=== PATIENT | male | born 1945 | race Caucasian/White ===

== ENCOUNTER 2017-01-03 08:03 | Day surgery (SDC) | payer MEDICARE, OTHER ==
[2016-12-27 15:44] LABS: HEMATOCRIT 40.8 % (40.0-51.0); HEMOGLOBIN 13.9 g/dL (13.6-17.8)
[2016-12-27 16:04] LABS: BUN (BLOOD UREA NITROGEN) 35 MG/DL (6-23); CALCIUM, SERUM 9.7 MG/DL (8.5-10.4); CHLORIDE, SERUM 106 MMOL/L (96-112); CO2 (CARBON DIOXIDE) 26 MMOL/L (24-34); GFR AFRICAN AMERICAN 40 ML/MIN (>=60); GFR NON AFRICAN AMERICAN 34 ML/MIN (>=60); GLUCOSE, SERUM 96 MG/DL (60-99); POTASSIUM, SERUM 4.2 MMOL/L (3.5-5.3); SODIUM, SERUM 141 MMOL/L (135-148)
[2016-12-27 16:05] LABS: CREATININE 1.93 MG/DL (0.70-1.30)
--- NOTE | ~2017-01-03 | OP ---
Record Of Operation [facility] [address] [place]. [address] NAME: VIRGINIE KAT : 47 STATUS : [facility] [place] PAT#: [id number] AGE: 71 ADM/REG DATE : 01/03/17 MR#: [id number] REPORT SERV DATE: 01/03/17 DICTATED BY: KUNAL JORDAN DATE: 01/03/17 REPORT STATUS : Draft TRANSCRIBED BY: ONELIA DATE: 01/03/17 DATE OF PROCEDURE: 01/03/2017 PREOPERATIVE DIAGNOSES: L2-3 stenosis, right L4-5 stenosis, left L5-S1 stenosis, and lumbar radiculopathy POSTOPERATIVE DIAGNOSES: L2-3 stenosis, right L4-5 stenosis, left L5-S1 stenosis, and lumbar radiculopathy. PROCEDURES: Left-sided L5-S1, right-sided L4-5, and right-sided L2-3 microdiscectomy; right- sided L2-L3 minimally invasive laminectomy; minimal access spine technology; intraoperative O-arm CT scan with computer navigation and operative microscope with decompression of the bilateral L2-L3 nerves, right L4-L5, and left L5-S1 nerve roots. ANESTHESIA: General. ESTIMATED BLOOD LOSS: 20 mL. COMPLICATIONS: None. INDICATIONS: The patient is a pleasant 71-year-old gentleman with intractable leg pain, failed multiple attempts at conservative treatment including therapy, medications, and epidural injections. After discussion of the risks and benefits, elected to proceed with surgical intervention. DESCRIPTION OF PROCEDURE: I identified the patient in the holding area. Consent was obtained. Went to the operating room. Underwent general anesthesia with endotracheal intubation. Prepped and draped in the usual sterile fashion. Operative safety pause was performed, and then we proceeded with the surgery. O-arm registration frame was placed in the iliac crest. O-arm was brought in for intraoperative CT scan. Computer registration materials were verified. Under computer guidance, a right longitudinal incision was made over the L2-5 level taken down through the fascial layer. Tube dilators were used to minimally invasively dissect down to the right L2-3 interspace. Operative microscope was brought in. A yudi was used to perform a laminotomy. Bhupinder performed a foraminotomy. Disk was incised. Free disk material was removed with the pituitary. A laminectomy was performed from the right-sided approach at the L2-L3 level decompressing bilateral sides. The tubes were then placed on the right side at the L4-5 level. Laminotomy, foraminotomy, and discectomy were repeated at that level as well as on the left-sided L5-S1 as detailed above. Irrigation was performed. Hemostasis was achieved. A layered closure was performed. Sterile dressings were applied. The patient was awoken and extubated, and taken to the recovery room in stable condition. FINDINGS: Lumbar stenosis as detailed above. Record Of Operation [address] [address] NAME: VIRGINIE KAT : 47 STATUS : [facility] [place] PAT#: [id number] AGE: 71 ADM/REG DATE : 01/03/17 MR#: [id number] REPORT SERV DATE: 01/03/17 DICTATED BY: KUNAL JORDAN DATE: 01/03/17 REPORT STATUS : Draft TRANSCRIBED BY: MODDeisy DATE: 01/03/17 SHIMA/ONELIA Kunal Jordan DO / [id number] CC: DO Marko Angel M.D.
[~2017-01-03 08:03] MED LIST: ADDER10 PO; ADDERALL XR20 MG PO; ADDERXR10 PO; ALPHA LIPOIC300 MG PO; ALPHA LIPOIC50 M1 PO; ARICEPT10 PO; ASAB PO; ASMANEX 30110 MCG IN; ASMANEX INH; AVAP150 PO; AVAPRO300 MG PO; AZO-CRANBERY450 MG PO; B COMPLETE PO; B COMPLEX; BREO ELLIPTA INH; CAL12OSR PO; CELEBREX2 PO; CO Q-10100 MG PO; COZAAR100 MG PO; CRESTOR10 PO; CRESTOR5 MG PO; FLOMAX4 PO; FLORASTOR250 MG PO; GLUCCHONDR PO; HALF81 PO; HYGROTON 25 MG25 MG PO; ISOPTINSR PO; LAMICTAL10 PO; LAMICTAL150 MG PO; LAMICTAL200 MG PO; LIPITOR10 PO; LOP50 PO; MULTIPLE VIT PO; NAMENDA5 PO; NORV10 PO; NORV5 PO; OCUVITE PO; OMEGA PO; PRAVACHOL40 MG PO; PRILOSEC40 MG PO; PRINZIDE1 TA1 PO; PROBIOTIC; PT UNABLE TO RECALL; RESTASIS OPH; SURBEX-T1 TAB PO; V120 PO; VITAMIN B PO; VITAMIN D1000 UNI1 PO; VITAMIN D31000 UNIT PO; VYVANSE20 MG OR; VYVANSE60 MG OR; VYVANSE70 MG PO; WELLXL150 PO; ZANTAC 150 PO; ZOL100 PO; [UNRECOGNIZED DRUG - CODE] OR; [UNRECOGNIZED DRUG - OTHER] PO
== END 2017-01-03 17:36 | disposition home or self-care (01) ==
LOC: SDC 08:03
PROVIDERS: Orthopaedic Surgery
PROC: 01NB0ZZ Release Lumbar Nerve, Open Approach (ICD-10-PCS; principal; 2017-01-03 09:45)
DX: M48.07 Spinal stenosis, lumbosacral region (principal); M54.16 Radiculopathy, lumbar region; I25.10 Atherosclerotic heart disease of native coronary artery without angina pectoris; E78.2 Mixed hyperlipidemia; I10 Essential (primary) hypertension; F31.9 Bipolar disorder, unspecified; F90.9 Attention-deficit hyperactivity disorder, unspecified type; G62.9 Polyneuropathy, unspecified; F03.90 Unspecified dementia, unspecified severity, without behavioral disturbance, psychotic disturbance, mood disturbance, and anxiety; M19.90 Unspecified osteoarthritis, unspecified site; G47.33 Obstructive sleep apnea (adult) (pediatric); J45.909 Unspecified asthma, uncomplicated; F41.9 Anxiety disorder, unspecified; K21.9 Gastro-esophageal reflux disease without esophagitis; Z99.89 Dependence on other enabling machines and devices; Z88.8 Allergy status to other drugs, medicaments and biological substances; Z88.0 Allergy status to penicillin; Z79.899 Other long term (current) drug therapy; Z87.442 Personal history of urinary calculi; Z98.890 Other specified postprocedural states
CPT/HCPCS: 80048; 85014; 85018; 88304; 88311; 93005; A9270-GY; J0690; J1030; J1170; J2250; J2405; J2710; J3010